=== PATIENT | male | born 1985 | race Caucasian/White ===

== ENCOUNTER 2017-10-06 11:33 | Inpatient (IN) | payer MEDICAID ==
[~2017-10-06] VITALS: Ht 175.3 cm; Wt 97.7 kg
[~2017-10-06 11:33] MED LIST: ATEN50TA PO; DSS100 PO; LURA40 PO
[2017-10-06 13:00] LABS: BASOPHILS % (AUTO) 0.7 % (0.0-2.0); EOSINOPHILS % (AUTO) 3.1 % (1.0-6.0); HEMATOCRIT 47.6 % (41-53); HEMOGLOBIN 16.4 g/dL (13.5-17.5); LYMPHOCYTES # (AUTO) 1.3 K/uL (1.0-4.8); LYMPHOCYTES % (AUTO) 26.3 % (22.0-44.0); MEAN CORPUSCULAR HEMOGLOBIN 31.6 pg (26.0-34.0); MEAN CORPUSCULAR HGB CONC 34.5 G/dL (31.0-37.0); MEAN CORPUSCULAR VOLUME 92 fL (80-100); MONOCYTES # (AUTO) 0.4 K/uL (0.1-1.0); MONOCYTES % (AUTO) 8.6 % (2.0-9.0); NEUTROPHILS # (AUTO) 3.1 K/uL (1.8-7.7); NEUTROPHILS % (AUTO) 61.3 % (40.0-70.0); PLATELET COUNT (AUTO) 226 K/uL (150-450)
[2017-10-06 13:14] LABS: ANION GAP 8 mmol/L (8-16); CALCIUM, TOTAL 8.8 mg/dL (8.8-10.5); CARBON DIOXIDE 27 mmol/L (22-29); CHLORIDE 104 mmol/L (98-107); CREATININE 0.98 mg/dL (0.60-1.30); GLOMERULAR FILTR. RATE CALC > 60 mL/min (>60); GLUCOSE,RANDOM 95 mg/dL (70-110); POTASSIUM 3.5 mmol/L (3.5-5.1); SODIUM SERUM 139 mmol/L (136-145); UREA NITROGEN, BLOOD 15 mg/dL (7-18)
[2017-10-06 13:18] LABS: ALANINE AMINOTRANSFERASE 37 U/L (12-78); ALBUMIN 3.8 g/dL (3.4-5.0); ALKALINE PHOSPHATASE 85 U/L (46-116); ASPARTATE AMINOTRANSFERASE 28 U/L (15-37); BILIRUBIN,TOTAL 0.3 mg/dL (0.1-1.0); TOTAL PROTEIN, SERUM 7.3 g/dL (6.4-8.2)
[2017-10-06] MEDS ORDERED: ZOLPIDEM TARTRATE 10 MG TABLET PO PRN (15:30)
[2017-10-06 15:52] LABS: CHOLESTEROL 134 mg/dL (131-200); HDL CHOLESTEROL 45 mg/dL (40-60); LDL CHOL (CALC.) 79 mg/dL (0-130); TRIGLYCERIDES 48 mg/dL (15-150)
[2017-10-06 16:10] LABS: AMPHET/METH SCREEN,URINE POSITIVE (NEGATIVE); BARBITURATE SCREEN, URINE NEGATIVE (NEGATIVE); BENZODIAZEPINES SCREEN,URINE POSITIVE (NEGATIVE); CANNABINOID SCREEN,URINE NEGATIVE (NEGATIVE); COCAINE SCREEN,URINE NEGATIVE (NEGATIVE); METHADONE SCREEN, URINE NEGATIVE (NEGATIVE); OPIATE SCREEN,URINE NEGATIVE (NEGATIVE); PHENCYCLIDINE SCREEN,URINE NEGATIVE (NEGATIVE)
[2017-10-06] MEDS ORDERED: DiphenhydrAMINE HCL 50 MG/ML VIAL ONE (18:07)
[2017-10-06] MEDS ORDERED: LORazepam 2 MG/ML VIAL ONE (18:07)
[2017-10-06] MEDS ORDERED: HALOPERIDOL LACTATE 5 MG/ML VIAL ONE (18:07)
[2017-10-06] MEDS ORDERED: DiphenhydrAMINE HCL 50 MG/ML VIAL IM ONE (18:15)
[2017-10-06] MEDS ORDERED: LORazepam 2 MG/ML VIAL IM ONE (18:15)
[2017-10-06] MEDS ORDERED: HALOPERIDOL LACTATE 5 MG/ML VIAL IM ONE (18:15)
[2017-10-06 18:18] VITALS: BP 123/83
[2017-10-07 08:08] VITALS: BP 128/60
[2017-10-07] MEDS: LORazepam 2 MG TABLET PO PRN (09:24)
[2017-10-07] MEDS: HALOPERIDOL 5 MG TABLET PO PRN (09:24)
[2017-10-07] MEDS: OLANZapine 5 MG TABLET PO SCH ×2 (09:25→20:15)
[2017-10-07] MEDS ORDERED: BACITRACIN 28.4 GM OINTMENT TP PRN (15:00)
[2017-10-07] MEDS ORDERED: ACETAMINOPHEN 325 MG TABLET PO PRN (15:00)
[2017-10-07] MEDS ORDERED: LOPERAMIDE HCL 2 MG CAPSULE PO PRN (15:00)
[2017-10-07] MEDS ORDERED: PETROLATUM,WHITE 71 GM JELLY TP PRN (15:00)
[2017-10-07] MEDS ORDERED: MAG HYDROX/AL HYDROX/SIMETH ES 30 ML SUSPENSION UDCUP PO PRN (15:00)
[2017-10-07] MEDS ORDERED: IBUPROFEN 600 MG TABLET PO PRN (15:00)
[2017-10-07] MEDS ORDERED: CloNIDine HCL 0.1 MG TABLET PO PRN (15:00)
[2017-10-07] MEDS ORDERED: MAGNESIUM HYDROXIDE SUSPENSION 30 ML UDCUP PO PRN (15:00)
[2017-10-07] MEDS ORDERED: ONDANSETRON HCL 4 MG TABLET PO PRN (15:00)
[2017-10-07] MEDS ORDERED: BENZOCAINE/MENTHOL LOZENGE MM PRN (15:00)
[2017-10-07] MEDS ORDERED: ALBUTEROL SULFATE HFA 90 MCG/PUFF 8 GM INHALER IH PRN (15:00)
[2017-10-07 16:25] VITALS: BP 139/72
[2017-10-08 06:24] VITALS: BP 127/84
[2017-10-08 08:14] VITALS: BP 124/78
[2017-10-08] MEDS: LISINOPRIL 5 MG TABLET PO SCH (10:36)
[2017-10-08] MEDS: OLANZapine 5 MG TABLET PO SCH ×2 (10:36→21:06)
[2017-10-08 16:05] VITALS: BP 120/76
[2017-10-09 06:37] VITALS: BP 118/78
[2017-10-09 08:02] VITALS: BP 133/66
[2017-10-09] MEDS: LISINOPRIL 5 MG TABLET PO SCH (08:21)
[2017-10-09] MEDS: OLANZapine 5 MG TABLET PO SCH ×2 (08:21→20:49)
[2017-10-09 16:05] VITALS: BP 110/68
[2017-10-09] MEDS: LORazepam 2 MG TABLET PO PRN (16:34)
[2017-10-09] MEDS: HALOPERIDOL 5 MG TABLET PO PRN (16:34)
[2017-10-09] MEDS: NICOTINE 21 MG/24 HOUR PATCH TD SCH (16:54)
[2017-10-10 06:40] VITALS: BP 115/69
[2017-10-10 08:05] VITALS: BP 112/68
[2017-10-10] MEDS: LISINOPRIL 5 MG TABLET PO SCH (08:40)
[2017-10-10] MEDS: OLANZapine 5 MG TABLET PO SCH (08:40)
[2017-10-10] MEDS: NICOTINE 21 MG/24 HOUR PATCH TD SCH (08:44)
[2017-10-10] MEDS ORDERED: OLAN5TAB27 PO (14:28)
[2017-10-10] MEDS ORDERED: LISI-660 PO (14:32)
[2017-10-10 16:29] VITALS: BP 105/60
== END 2017-10-10 16:05 | disposition home or self-care (01) | DRG 750 ==
LOC: EMS 11:34 → B3A 16:34
DX: F25.1 Schizoaffective disorder, depressive type (principal); R45.851 Suicidal ideations; Z78.1 Physical restraint status; I10 Essential (primary) hypertension; J44.9 Chronic obstructive pulmonary disease, unspecified; F15.10 Other stimulant abuse, uncomplicated; K59.00 Constipation, unspecified; K21.9 Gastro-esophageal reflux disease without esophagitis; F17.210 Nicotine dependence, cigarettes, uncomplicated; F41.9 Anxiety disorder, unspecified; G47.00 Insomnia, unspecified
CPT/HCPCS: 99285; 99406; G0480; J1200; J1630; J2060

== ENCOUNTER 2017-11-12 18:56 | Emergency (ER) | payer MEDICAID ==
[~2017-11-12] VITALS: Ht 177.8 cm; Wt 95.5 kg
[~2017-11-12 18:56] MED LIST changes: -ATEN50TA PO; -DSS100 PO; +LISI-660 PO; -LURA40 PO; +OLAN5TAB27 PO
[2017-11-12] MEDS ORDERED: SODIUM CHLORIDE 0.9% 1,000 ML IV ONE (20:00)
[2017-11-12 20:11] LABS: BASOPHILS % (AUTO) 0.5 % (0.0-2.0); EOSINOPHILS % (AUTO) 0.8 % (1.0-6.0); HEMATOCRIT 39.9 % (41-53); HEMOGLOBIN 13.9 g/dL (13.5-17.5); LYMPHOCYTES # (AUTO) 1.4 K/uL (1.0-4.8); LYMPHOCYTES % (AUTO) 16.5 % (22.0-44.0); MEAN CORPUSCULAR HGB CONC 34.8 G/dL (31.0-37.0); MEAN CORPUSCULAR VOLUME 92 fL (80-100); MONOCYTES # (AUTO) 0.6 K/uL (0.1-1.0); MONOCYTES % (AUTO) 7.1 % (2.0-9.0); NEUTROPHILS # (AUTO) 6.5 K/uL (1.8-7.7); NEUTROPHILS % (AUTO) 75.1 % (40.0-70.0); PLATELET COUNT (AUTO) 175 K/uL (150-450); RED BLOOD CELL COUNT(AUTO) 4.33 MIL/uL (4.50-5.90); RED CELL DISTRIBUTION WIDTH 13.5 % (11.5-14.5)
[2017-11-12 20:22] LABS: ANION GAP 9 mmol/L (8-16); CALCIUM, TOTAL 8.5 mg/dL (8.8-10.5); CARBON DIOXIDE 28 mmol/L (22-29); CHLORIDE 106 mmol/L (98-107); CREATININE 0.87 mg/dL (0.60-1.30); GLOMERULAR FILTR. RATE CALC > 60 mL/min (>60); GLUCOSE,RANDOM 109 mg/dL (70-110); POTASSIUM 3.5 mmol/L (3.5-5.1); SODIUM SERUM 143 mmol/L (136-145); UREA NITROGEN, BLOOD 10 mg/dL (7-18)
[2017-11-12 20:34] LABS: ALANINE AMINOTRANSFERASE 36 U/L (12-78); ALBUMIN 3.6 g/dL (3.4-5.0); ALKALINE PHOSPHATASE 75 U/L (46-116); ASPARTATE AMINOTRANSFERASE 44 U/L (15-37); BILIRUBIN,TOTAL 0.5 mg/dL (0.1-1.0); TOTAL PROTEIN, SERUM 6.8 g/dL (6.4-8.2)
[2017-11-13 02:22] LABS: AMPHET/METH SCREEN,URINE POSITIVE (NEGATIVE); BARBITURATE SCREEN, URINE NEGATIVE (NEGATIVE); BENZODIAZEPINES SCREEN,URINE POSITIVE (NEGATIVE); CANNABINOID SCREEN,URINE NEGATIVE (NEGATIVE); COCAINE SCREEN,URINE NEGATIVE (NEGATIVE); METHADONE SCREEN, URINE NEGATIVE (NEGATIVE); OPIATE SCREEN,URINE NEGATIVE (NEGATIVE)
[2017-11-13 02:24] LABS: PHENCYCLIDINE SCREEN,URINE NEGATIVE (NEGATIVE)
[2017-11-13 02:30] VITALS: BP 138/87
== END 2017-11-13 03:19 | disposition home or self-care (01) ==
LOC: EMS 18:57
DX: F15.10 Other stimulant abuse, uncomplicated (principal); R00.0 Tachycardia, unspecified; F17.210 Nicotine dependence, cigarettes, uncomplicated; J45.909 Unspecified asthma, uncomplicated; F31.9 Bipolar disorder, unspecified; Z79.899 Other long term (current) drug therapy
CPT/HCPCS: 36415; 80053; 80307; 85025; 93005; 99285; G0480; J7030